=== PATIENT | female | born 2000 | race Caucasian/White ===

== ENCOUNTER 2025-04-15 12:02 | Emergency (ER) | payer OTHER ==
[~2025-04-15] VITALS: Ht 157.5 cm; Wt 56.7 kg
[2025-04-15 12:57] LABS: PLATELET COUNT (AUTO) 265 K/uL (150-450); RED BLOOD CELL COUNT(AUTO) 4.95 MIL/uL (4.0-5.2); RED CELL DISTRIBUTION WIDTH 13.4 % (11.5-15.0); WHITE BLOOD COUNT (AUTO) 3.9 K/uL (4.3-11.0)
[2025-04-15 13:03] LABS: CALCIUM, SERUM 8.7 mg/dL (8.5-10.1); CREATININE 0.7 mg/dL (0.6-1.3); SODIUM SERUM 137.0 mmol/L (136-145); UREA NITROGEN, BLOOD 12.0 mg/dL (7-18)
[2025-04-15 13:39] VITALS: BP 115/80; TEMP 98.5; O2SAT 100
== END 2025-04-15 13:39 | disposition home or self-care (01) ==
LOC: ER 12:09
DX: R51.9 Headache, unspecified (principal)
CPT/HCPCS: 36415; 70450-TC; 80048-TC; 84703-TC; 85025-TC